=== PATIENT | female | born 1955 | race African-American/Black ===

== ENCOUNTER 2022-01-02 15:30 | Emergency (ER) | payer OTHER ==
[2022-01-02 16:02] VITALS: BP 120/74; PULSE 64; TEMP 98.2; BMI 28.9
== END 2022-01-02 18:00 | disposition home or self-care (01) ==
LOC: FER 15:30
DX: S83.91XA Sprain of unspecified site of right knee, initial encounter (principal); X50.0XXA Overexertion from strenuous movement or load, initial encounter
CPT/HCPCS: 73560-TC-RT-FY; 76882-TC-RT-FY; 99284-25

== ENCOUNTER 2024-08-15 08:28 | Emergency (ER) | payer OTHER ==
[2024-08-15 08:37] VITALS: BP 104/72; BMI 28.9
[2024-08-15] MEDS ORDERED: FAMOTIDINE 20 MG TABLET ONE (09:06)
[2024-08-15] MEDS ORDERED: IBUPROFEN 600 MG TABLET (FP) PO ONE (09:06)
[2024-08-15] MEDS: FAMOTIDINE 20 MG TABLET PO ONE (09:09)
[2024-08-15] MEDS: IBUPROFEN 600 MG TABLET (FP) PO ONE (09:09)
[2024-08-15 09:22] LABS: EPI CELLS 30 /uL (0-25.1); HYALINE CASTS 5 /uL (0-3.1); PH,URINE 6.5 (5.0-8.0); URINE APPEARANCE CLEAR; URINE BACTERIA 26 /uL (0-1359); URINE BILIRUBIN NEGATIVE (NEGATIVE); URINE COLOR YELLOW; URINE GLUCOSE (UA) NEGATIVE (NEGATIVE); URINE KETONE TRACE (NEGATIVE); URINE LEUK ESTERASE NEGATIVE (NEGATIVE); URINE NITRITE NEGATIVE (NEGATIVE); URINE PROTEIN 2+ (NEGATIVE); URINE RBC 79 /uL (0-23.9); URINE WBC 41 /uL (0-25.8)
[2024-08-15 10:06] VITALS: PULSE 95; RESP 20; TEMP 100.1
== END 2024-08-15 10:25 | disposition home or self-care (01) ==
LOC: JERFT 08:28
DX: J10.1 Influenza due to other identified influenza virus with other respiratory manifestations (principal); R05.9 Cough, unspecified; R51.9 Headache, unspecified; M79.10 Myalgia, unspecified site; R61 Generalized hyperhidrosis; R09.3 Abnormal sputum; R50.9 Fever, unspecified; R00.0 Tachycardia, unspecified; Z20.822 Contact with and (suspected) exposure to COVID-19
CPT/HCPCS: 0241U-QW; 71046-TC-FY; 81003; 87086; 87651; 99284-25